=== PATIENT | female | born 1985 | race Caucasian/White ===

== ENCOUNTER 2016-12-14 01:25 | Emergency (ER) | payer OTHER ==
--- NOTE | 2016-12-14 01:39 | Emergency Department Record ---
History of Present Illness - General Chief Complaint: Abdominal Pain Stated Complaint: abd. pain Time Seen by Provider: 12/14/16 01:38 Source: Patient Mode of Arrival: Ambulatory Limitations: No limitations - History of Present Illness Initial Comments: The patient is here due to not feeling well this evening. She has been feeling nauseated all day and then about 3 hours ago developed worsening nausea and upper AP. The pain is sharp and stabbing. She denies any lower abdominal pain, fever, vomiting, diarrhea or back pain. She does report feeling a BENJAMIN and chills. The patient has no hx of any abdominal surgeries. MD Complaint: Abdominal pain Onset/Timin -: Hour(s) Location: Epigastric, RUQ Radiation: RUQ Migration to: No migration Severity: Severe Quality: Cramping, Sharp Consistency: Constant, Intermittent Improves With: Nothing Worsens With: Nothing Associated Symptoms: Chills, Nausea Treatments Prior to Arrival: Other - Related Data LMP Date: 11/18/16 LMP (females 10-50): 1 month ago Patient : No Home Medications Medication Instructions Recorded Confirmed Last Taken Hydrocodone/Acetaminophen [[place] 1 tab PO Q4-6HR PRN tab 07/13/15 12/14/16 Unknown 10mg/325mg] Metoprolol Succinate [Toprol Xl] 25 mg PO DAILY 07/13/15 12/14/16 Unknown Allergies Allergy/AdvReac Type Severity Reaction Status Date / Time No Known Allergies Allergy Unverified 07/13/15 18:34 Travel Screening - Travel/Exposure Within Last 30 Days Have you traveled within the last 30 days?: No Review of Systems Constitutional: Reports: Chills, Malaise. Denies: Fever Eyes: Denies: Eye discharge ENT: Denies: Congestion Respiratory: Denies: Cough, Dyspnea Cardiovascular: Denies: Chest pain Endocrine: Denies: Fatigue Past Medical History - SOCIAL HISTORY Smoking Status: Light tobacco smoker (<10/day) Alcohol Use: Rare Drug Use: None - [employer] History LMP comments: Reports: month(s) (1) - RESPIRATORY Hx Respiratory Disorders: No - CARDIOVASCULAR Hx Cardio Disorders: No Physical Exam - General General Appearance: Alert, Oriented x3, Cooperative, No acute distress - Head Head exam: Atraumatic, Normocephalic, Normal inspection - Eye Eye exam: Normal appearance, PERRL - ENT Throat exam: Normal inspection. negative: Tonsillar erythema, Tonsillar exudate - Neck Neck exam: Normal inspection, Full ROM. negative: Lymphadenopathy, Meningismus (The neck is very supple.), Tenderness - Respiratory Respiratory exam: Normal lung sounds bilaterally. negative: Respiratory distress - Cardiovascular Cardiovascular Exam: Regular rate, Normal rhythm, Normal heart sounds - GI/Abdominal GI/Abdominal exam: Soft, Normal bowel sounds, Tenderness (There is mild RUQ and Epigastric tenderness.). negative: Distended, Rebound, Rigid - Extremities Extremities exam: Normal inspection, Full ROM, Normal capillary refill. negative: Tenderness Course Vital Signs 12/14/16 01:29 Temperature 98.6 F Pulse Rate 113 H Respiratory 22 Rate Blood Pressure 135/87 Pulse Ox 98 - Reevaluation(s) Reevaluation #1: The patient is doing better at this time. She is resting comfortably and did just return from CT. 12/14/16 03:13 Reevaluation #2: The patient is doing much better at this time. Her abdominal pain is almost completely gone at this time. She also denies any BENJAMIN presently. On exam her abdomen is very soft with very minimal upper abdominal tenderness. I did explain to her that her lab tests are all mostly WNL's except for a mildly elevated bandemia on her CBC. The CT is normal with no gallbladder issues or masses so I do feel it is safe for the patient to be discharged. She is to return to the ER later today if she is not better. 12/14/16 03:32 Medical Decision Making - Data Complexity MDM Data: Labs Ordered and/or Reviewed, X-Ray Ordered and/or Reviewed - Lab Data Result diagrams: 12/14/16 01:55 12/14/16 01:55 - Radiology Data Radiology results: Report reviewed (Abd CT: Normal.) Disposition Disposition: Discharge Clinical Impression: Abdominal pain Qualifiers: Abdominal location: unspecified location Qualified Code(s): R10.9 - Unspecified abdominal pain Disposition: Home, Self-Care Condition: (1) Good Instructions: Abdominal Pain (ED) Additional Instructions: Please use the Zofran if needed for nausea and take your home pain medicines if needed. Please return to the ER later today for any persistent or increased pain , fever, or vomiting. Forms: Patient Portal Access Time of Disposition: 03:36
[2016-12-14] MEDS ORDERED: ONDANSETRON HCL IV 4 MG/2 ML VIAL IV ONE (01:42)
[2016-12-14] MEDS ORDERED: 0.9 % SODIUM CHLORIDE 1,000 ML BAG IV ONE (01:42)
[2016-12-14] MEDS ORDERED: ACETAMINOPHEN 325 MG TAB PO ONE (02:00)
[2016-12-14 02:03] LABS: URINE APPEARANCE CLEAR; URINE BILIRUBIN NEGATIVE (NEGATIVE); URINE BLOOD SMALL (NEGATIVE); URINE COLOR YELLOW; URINE GLUCOSE (UA) NEGATIVE (NEGATIVE); URINE KETONE TRACE (NEGATIVE); URINE LEUKOCYTE ESTERASE NEGATIVE (NEGATIVE); URINE NITRITE NEGATIVE (NEGATIVE); URINE PROTEIN NEGATIVE (NEGATIVE); URINE UROBILINOGEN 0.2 E.U./dL (0.20 - 1.00)
[2016-12-14 02:07] LABS: HCG,QUALITATIVE URINE NEGATIVE (NEGATIVE)
[2016-12-14] MEDS ORDERED: KETOROLAC 30 MG/ML VIAL IVP ONE (02:12)
[2016-12-14 02:18] LABS: URINE AMORPHOUS SEDIMENT 1+; URINE WBC 0 - 2 (0-2/hpf)
[2016-12-14 02:26] LABS: HEMATOCRIT 38.4 % (35.0-47.0); HEMOGLOBIN 12.7 gm/dl (11.6-16.0); MEAN CELL VOLUME 88.9 fl (81-97); MEAN CORPUSCULAR HEMOGLOBIN 29.4 pg (27-33); MEAN CORPUSCULAR HGB CONC 33.1 g/dl (32-36); RED BLOOD COUNT 4.32 M/uL (3.80-5.40); RED CELL DISTRIBUTION WIDTH 13.3 % (11.5-14.5); WHITE BLOOD COUNT W/O DIFF 6.3 K/uL (4.2-12.2)
[2016-12-14 02:27] LABS: PLATELET COUNT 266 K/uL (130-400)
[2016-12-14 02:28] LABS: ALBUMIN 4.1 gm/dL (3.5-5.0); ALKALINE PHOSPHATASE 73 U/L (38-126); ALT/SGPT 36 U/L (9-52); AST/SGOT 19 U/L (14-36); BLOOD UREA NITROGEN 13 mg/dL (7-17); CREATININE 0.7 mg/dL (0.52-1.04); EST GLOMERULAR FILTRATION RATE > 60 ml/min; GLUCOSE,RANDOM 141 mg/dL (70-110); LIPASE 45 U/L (23-300); TOTAL PROTEIN 6.8 gm/dL (6.3-8.2)
[2016-12-14] MEDS ORDERED: HYDROMORPHONE HCL 1 MG/ML CPJ IVP ONE ×2 (02:34→03:43)
[2016-12-14] MEDS ORDERED: MAGNESIUM HYDROXIDE/AL HYDROX 30 ML, LIDOCAINE VISC 2% 200 MG PO ONE ×2 (03:32)
[2016-12-14] MEDS ORDERED: ONDANSETRON 4 MG ODT TABLET SL ONE (03:36)
== END 2016-12-14 04:01 | disposition home or self-care (01) ==
LOC: ER 01:25
DX: R10.11 Right upper quadrant pain (principal); R11.0 Nausea
CPT/HCPCS: 99284 ×2; 96376; 96374; 96375; 83690; 80076; 86140; 80048; 81001; 81025; 85027; 74176; J1885; J2405; J1170; J7030

== ENCOUNTER 2017-01-26 17:48 | Emergency (ER) | payer OTHER ==
--- NOTE | 2017-01-26 18:16 | Emergency Department Record ---
History of Present Illness - General Chief Complaint: Numbness Stated Complaint: LEFT SIDE OF HEAD NUMB Time Seen by Provider: 01/26/17 17:54 Source: Patient, RN notes reviewed Mode of Arrival: Ambulatory - History of Present Illness Initial Comments: numb area on the left side of scalp which started this AM and she went to [facility] in [place] and told to go to the ED to recieve a CT scan of head. She admits to drinking heavy last night and no trauma and no BCP. She did have a headache this morning from her hangover. She took motrin 600mg and one norco and headache better. -: Awoke with symptoms History of same: No Place: Home Severity: Mild Improves With: None Worsens With: None Treatments Prior to Arrival: Other medication - Ralph Coma Scale Eye Response: (4) Open spontaneously Motor Response: (6) Obeys commands Verbal Response: (5) Oriented Ralph Total: 15 - Symptoms of Stroke Onset of Symptoms Date: 01/26/17 Onset of Symptoms Time: 08:30 - Related Data Home Medications: Home Medications Medication Instructions Recorded Confirmed Last Taken Hydrocodone/Acetaminophen [[place] 1 tab PO Q4-6HR PRN tab 07/13/15 01/26/17 1 Day Ago 10mg/325mg] ~01/25/17 Metoprolol Succinate [Toprol Xl] 25 mg PO DAILY 07/13/15 01/26/17 1 Day Ago ~01/25/17 Previous Rx's Medication Instructions Recorded Naproxen [Naprosyn] 500 mg PO Q12H #20 tab. 01/26/17 Allergies/Adverse Reactions: Allergies Allergy/AdvReac Type Severity Reaction Status Date / Time No Known Allergies Allergy HYPERSENSIT Verified 01/26/17 17:58 IVITY Travel Screening - Travel/Exposure Within Last 30 Days Have you traveled within the last 30 days?: No - Travel/Exposure Within Last Year Have you traveled outside the [place] in the last year?: No - Additonal Travel Details Have you been exposed to anyone with a communicable illness?: No - Travel Symptoms Symptom Screening: None Review of Systems Reviewed: No additional complaints except as noted below Constitutional: Reports: As per HPI. Denies: Chills, Fever, Malaise, Night sweats, Weakness, Weight change Eyes: Reports: As per HPI. Denies: Eye discharge, Eye pain, Photophobia, Vision change ENT: Reports: As per HPI. Denies: Congestion, Dental pain, Ear pain, Epistaxis , Hearing loss, Throat pain Respiratory: Reports: As per HPI. Denies: Cough, Dyspnea, Hemoptysis, Stridor, Wheezes Cardiovascular: Reports: As per HPI. Denies: Arrhythmia, Chest pain, Dyspnea on exertion, Edema, Murmurs, Orthopnea, Palpitations, Paroxysmal nocturnal dyspnea, Rheumatic Fever, Syncope Endocrine: Reports: As per HPI. Denies: Fatigue, Heat or cold intolerance, Polydipsia, Polyuria Gastrointestinal: Reports: As per HPI. Denies: Abdominal pain, Constipation, Diarrhea, Hematemesis, Hematochezia, Melena, Nausea, Vomiting Genitourinary: Reports: As per HPI. Denies: Abnormal menses, Discharge, Dyspareunia, Dysuria, Frequency, Hematuria, Incontinence, Retention, Urgency Musculoskeletal: Reports: As per HPI. Denies: Arthralgia, Back pain, Gout, Joint swelling, Myalgia, Neck pain Skin: Reports: As per HPI. Denies: Bruising, Change in color, Change in hair/ nails, Lesions, Pruritus, Rash Neurological: Reports: As per HPI. Denies: Abnormal gait, Confusion, Headache, Numbness, Paresthesias, Seizure, Tingling, Tremors, Vertigo, Weakness Psychiatric: Reports: As per HPI. Denies: Anxiety, Auditory hallucinations, Depression, Homicidal thoughts, Suicidal thoughts, Visual hallucinations Hematological/Lymphatic: Reports: As per HPI. Denies: Anemia, Blood Clots, Easy bleeding, Easy bruising, Swollen glands Past Medical History - SOCIAL HISTORY Smoking Status: Light tobacco smoker (<10/day) Alcohol Use: Occassional Drug Use: None, Rare Drug Use Detail:: Marijuana - RESPIRATORY Hx Respiratory Disorders: No - CARDIOVASCULAR Hx Cardio Disorders: No - NEURO Hx Neuro Disorders: No - GI Hx GI Disorders: No - Hx Genitourinary Disorders: No - ENDOCRINE Hx Endocrine Disorders: No - MUSCULOSKELETAL Hx Musculoskeletal Disorders: No - PSYCH Hx Psych Problems: No - HEMATOLOGY/ONCOLOGY Hx Hematology/Oncology Disorders: No Family Medical History Any Significant Family History?: Yes Hx Cancer: Mother *Cancer Comment: Breast Hx Diabetes: Brother/Sister Hx HTN: Father Physical Exam - General General Appearance: Alert, Oriented x3, Cooperative, No acute distress - Head Head exam: Normal inspection - Eye Eye exam: Normal appearance, PERRL Pupils: Normal accommodation - ENT ENT exam: Normal exam, Mucous membranes moist, Normal external ear exam, Normal orophraynx, TM's normal bilaterally Ear exam: Normal external inspection. negative: External canal tenderness Nasal Exam: Normal inspection. negative: Discharge, Sinus tenderness Mouth exam: Normal external inspection, Tongue normal Teeth exam: Normal inspection. negative: Dental caries Throat exam: Normal inspection. negative: Tonsillar erythema, Tonsillar exudate - Neck Neck exam: Normal inspection, Full ROM. negative: Tenderness - Respiratory Respiratory exam: Normal lung sounds bilaterally. negative: Respiratory distress - Cardiovascular Cardiovascular Exam: Regular rate, Normal rhythm, Normal heart sounds - GI/Abdominal GI/Abdominal exam: Soft, Normal bowel sounds. negative: Tenderness - Rectal Rectal exam: Deferred - exam: Deferred - Extremities Extremities exam: Normal inspection, Full ROM, Normal capillary refill. negative: Tenderness - Back Back exam: Reports: Normal inspection, Full ROM. Denies: Muscle spasm, Rash noted, Tenderness - Neurological Neurological exam: Alert, Normal gait, Oriented X3, Reflexes normal - Psychiatric Psychiatric exam: Normal affect, Normal mood - Skin Skin exam: Dry, Intact, Normal color, Warm Course Vital Signs 01/26/17 17:50 Temperature 97.8 F Pulse Rate 93 H Respiratory 16 Rate Blood Pressure 133/74 Pulse Ox 98 paresthesia in the scalp left parietal area Medical Decision Making - Data Complexity MDM Data: Labs Ordered and/or Reviewed, X-Ray Ordered and/or Reviewed (ct head neg) - Lab Data Result diagrams: 01/26/17 18:15 01/26/17 18:15 Disposition Clinical Impression: Paresthesia Disposition: Home, Self-Care Condition: (1) Good Instructions: Paresthesia (ED) Additional Instructions: follow up with family in 3 days. Prescriptions: Naproxen [Naprosyn] 500 mg PO Q12H #20 tab.dr Forms: Patient Portal Access Time of Disposition: 18:57
[2017-01-26 18:19] LABS: BASO % 0.4 % (0-6); EOS % 2.4 % (0-6); HEMATOCRIT 41.1 % (35.0-47.0); HEMOGLOBIN 13.5 gm/dl (11.6-16.0); LYMPH % 18.6 % (16-45); MEAN CELL VOLUME 89.9 fl (81-97); MEAN CORPUSCULAR HEMOGLOBIN 29.5 pg (27-33); MEAN CORPUSCULAR HGB CONC 32.8 g/dl (32-36); MEAN PLATELET VOLUME 9.6 fl (7.4-10.4); MONO % 9.6 % (0-9); PLATELET COUNT 346 K/uL (130-400); RED BLOOD COUNT 4.57 M/uL (3.80-5.40)
[2017-01-26 18:30] LABS: ANION GAP 9.6 (7-16); BLOOD UREA NITROGEN 20 mg/dL (7-17); CARBON DIOXIDE 21.4 mmol/L (22-30); CREATININE 0.6 mg/dL (0.52-1.04); EST GLOMERULAR FILTRATION RATE > 60 ml/min; GLUCOSE,RANDOM 102 mg/dL (70-110)
--- NOTE | 2017-01-27 12:49 | CT SCAN REPORT ---
EXAM: CT SCAN OF THE HEAD HISTORY: PATIENT HAS A HEADACHE AND NUMBNESS FEELING IN THE LEFT SIDE OF HER HEAD. TECHNIQUE: Serial axial CT scan of the head was performed at 2.5 mm intervals from the base of the skull to the apex without the use of intravenous contrast. Sagittal and coronal reconstructions are provided. No comparison CT's are available. FINDINGS: The ventricles, cisterns, and sulci appear within normal limits for size, shape and attenuation. There is no mass or mass effect. The mercedes and white differentiation appear within normal limits. There is no CT evidence of intra or extraaxial fluid collection to suggest bleeding. The bone windows demonstrate no CT evidence of a fracture or dislocation of the skull. The paranasal sinuses are unremarkable. IMPRESSION: NO CT EVIDENCE OF AN ACUTE INTRACRANIAL PROCESS. JOB NUMBER: [id number] [facility]
== END 2017-01-26 19:09 | disposition home or self-care (01) ==
LOC: ER 17:48
DX: R20.9 Unspecified disturbances of skin sensation (principal); R20.0 Anesthesia of skin; R51 Headache
CPT/HCPCS: 70450; 80048; 85025; 99283; 99284